=== PATIENT | male | born 2000 | race Hispanic/Latino ===

== ENCOUNTER 2022-05-27 02:52 | Emergency (ER) | payer OTHER ==
[~2022-05-27] VITALS: Ht 170.2 cm; Wt 62.6 kg
[2022-05-27] MEDS ORDERED: HALOPERIDOL INJ 5 MG/ML VIAL ONE (03:18)
[2022-05-27] MEDS ORDERED: ONDANSETRON 4MG INJ IVP ONE (03:30)
[2022-05-27] MEDS ORDERED: FAMOTIDINE 20MG VIAL IV ONE (03:30)
[2022-05-27] MEDS ORDERED: LACTATED RINGERS 1000ML 3,000 ML IV ONE (03:30)
[2022-05-27 03:31] LABS: BASOPHILS % (AUTO) 0.3 % (0.0-5.0); EOSINOPHILS % (AUTO) 0.1 % (0.0-8.0); HEMATOCRIT 43.1 % (42-54); LYMPHOCYTES % (AUTO) 13.8 % (21.0-51.0); MEAN CORPUSCULAR HEMOGLOBIN 30.8 pg (27.0-33.0); MEAN CORPUSCULAR HGB CONC 36.2 g/dL (32.0-36.0); MONOCYTES % (AUTO) 7.8 % (3.0-13.0); NEUTROPHILS % (AUTO) 77.6 % (40.0-77.0); PLATELET COUNT (AUTO) 337 K/uL (130-400); RED BLOOD CELL COUNT(AUTO) 5.07 MIL/uL (4.50-6.20); RED CELL DISTRIBUTION WIDTH 11.7 % (11.0-15.5); WHITE BLOOD COUNT (AUTO) 17.7 K/uL (4.8-10.8)
[2022-05-27 03:33] LABS: APPEARANCE,URINE CLEAR (CLEAR); BILIRUBIN,URINE 0.5 mg/dL (NEGATIVE); COLOR,URINE YELLOW (YELLOW); GLUCOSE, URINE (UA) NEGATIVE (NEGATIVE); KETONES,URINE 40 mg/dL (NEGATIVE); LEUKOCYTE ESTERASE ,URINE NEGATIVE Leu/uL (NEGATIVE); NITRATE,URINE NEGATIVE (NEGATIVE); OCCULT BLOOD,URINE NEGATIVE (NEGATIVE); PH,URINE 6.5 (5.0-8.0); PROTEIN,URINE 70 mg/dL (NEGATIVE)
[2022-05-27 03:41] LABS: AMPHET/METH SCREEN,URINE NEGATIVE (NEGATIVE); BARBITURATE SCREEN, URINE NEGATIVE (NEGATIVE); BENZODIAZEPINES SCREEN,URINE NEGATIVE (NEGATIVE); CANNABINOID SCREEN,URINE POSITIVE (NEGATIVE); COCAINE SCREEN,URINE NEGATIVE (NEGATIVE); OPIATE SCREEN,URINE NEGATIVE (NEGATIVE); PHENCYCLIDINE SCREEN,URINE NEGATIVE (NEGATIVE)
[2022-05-27 03:43] LABS: CARBON DIOXIDE 21 mmol/L (21-32); CHLORIDE 100 mmol/L (101-111); CREATININE 1.5 mg/dL (0.5-1.5); GLOMERULAR FILTR. RATE CALC 61 mL/min (>60); GLUCOSE,RANDOM 158 mg/dL (70-105); POTASSIUM 3.2 mmol/L (3.5-5.1); SODIUM SERUM 138 mmol/L (136-145); UREA NITROGEN, BLOOD 26 mg/dL (7-18)
[2022-05-27 03:47] LABS: MUCUS,URINE FEW LPF (None Seen); WBC,URINE 0-1 /HPF (0-1)
[2022-05-27 04:07] LABS: ALANINE AMINOTRANSFERASE 30 U/L (12-78); ASPARTATE AMINOTRANSFERASE 38 U/L (10-37); LIPASE 66 U/L (114-286); TOTAL PROTEIN, SERUM 8.5 g/dL (6.0-8.3)
[2022-05-27 04:12] LABS: ALCOHOL, BLOOD < 3 mg/dL (0-10); CREATINE KINASE, TOTAL 1342 U/L (21-232)
[2022-05-27] MEDS ORDERED: POTASSIUM CHLORIDE 20MEQ/10ML 10 MEQ in 0.9%NACL 50ML 50 ML IV SCH (04:30)
[2022-05-27] MEDS ORDERED: POTASSIUM CHLORIDE 20MEQ/100ML 100 ML IV ONE (04:53)
[2022-05-27] MEDS ORDERED: ONDA-104 PO (05:28)
[2022-05-27] MEDS ORDERED: OMEP40CA21 PO (05:28)
[2022-05-27 06:28] VITALS: BP 109/62
== END 2022-05-27 07:05 | disposition home or self-care (01) ==
LOC: EDH 02:52
DX: E86.0 Dehydration (principal); R11.2 Nausea with vomiting, unspecified; F41.9 Anxiety disorder, unspecified; F20.9 Schizophrenia, unspecified; F12.90 Cannabis use, unspecified, uncomplicated
CPT/HCPCS: 99284; 96374; 96361; 96375; 82550; 84484; 80053; 80305; 83690; 85025; 36415; 96372; 81001; J3490; J1630; J2405; J3480